=== PATIENT | female | born 1950 | race Caucasian/White ===

== ENCOUNTER 2016-10-06 10:50 | Emergency (ER) | payer OTHER ==
[~2016-10-06] VITALS: Ht 162.6 cm; Wt 59.1 kg
[2016-10-06 10:56] VITALS: BP 138/78; PULSE 58; RESP 18; O2SAT 100
[2016-10-06 11:33] LABS: BASOPHILS % (AUTO) 0.2 % (0-3); EOSINOPHILS % (AUTO) 2.6 % (0-5); MONOCYTES % (AUTO) 9.7 % (4-12); Mean Corpuscular Hemoglobin 26.9 pg (27.0-35.0); Mean Corpuscular Volume 83.8 fL (81-100); NEUTROPHILS % (AUTO) 52.2 % (40-74); Platelet Count 321 bil/L (150-400)
[2016-10-06 11:54] LABS: TROPONIN T 0.01 ug/L (0.0-0.011)
[2016-10-06 12:05] LABS: Magnesium 2.1 mg/dL (1.6-2.6)
--- NOTE | 2016-10-06 12:28 | ED.REPORT ---
HPI-Extremity Prob Upper Peds Date of Service Oct 06, 2016 ED Provider: Stephaine Chun History of Present Illness: heart has been acting "wonky" for a few weeks. has had episodes for the past 25 years. 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 no primary care. no cardiology exrcises 45 minutes daily. feels the heart is beating fast and then "under acheiving" lasting a minute. has not done this in a few days Nursing Notes Stated Complaint: HEART PALPITATIONS Chief Complaint: Dysrhythmia/Cardiac Nursing Notes Reviewed: Yes Allergies: Coded Allergies: oxycodone (Verified Allergy, Severe, 10/06/16) General Time Seen by MD: 12:17 Chief Complaint Other (palpations) Hx Obtained from: Patient Past Medical History Past Medical History Denies: Asthma, Diabetes mellitus Past Surgical History denies Smoking History Never Smoker Occupation Occupation: lives with 10/06/2016 Ambulatory Status Ambulatory Status: Independent Review of Systems Basic Review of Systems Eyes: Vision NL, No discharge ENT: Hearing NL, No pain, No nasal congestion, No pharyngeal pain Respiratory: No shortness of breath, No cough, No wheeze Cardiovascular: No chest pain, No dyspnea on exertion, No orthopnea, No parox noct dyspnea, No palpitations GI: No abdominal pain, No anorexia, No nausea, No vomiting : No dysuria, No frequency Hematologic: No bleeding, No bruising Endocrine: No cold intolerance, No heat intolerance, No weight gain, No weight loss Allergy / Immune: No allergy Psychiatric: Normal thought content Physical Exam Initial Vital Signs Vital Signs (First) Date Time Temp Pulse Resp B/P Pulse Ox O2 Delivery O2 Flow Rate FiO2 10/06/16 10:56 36.2 58 18 138/78 100 Room Air Initial VS: Reviewed, Vital signs normal General/Constitutional: Well-developed, Well-nourished, No irritability Head / Eyes: Atraumatic, Normocephalic, PERRL ENT: Mucous membranes moist, Conjunctiva normal, No scleral icterus Neck: Supple, Non-tender, Full range of motion Respiratory: Breath sounds normal, Clear to auscultation, No respiratory distress Cardiovascular: Regular rate & rhythm, Heart sounds normal, Intact distal pulses Abdomen / GI: Soft, Non-tender, No guarding, No rebound, No distention Back: No CVA tenderness Lymphatic: No lymphadenopathy Lower Extremities: Vascular intact, Neuro intact, No swelling, No tenderness Skin: Warm, Dry, No cyanosis Neurologic: Alert, Oriented, Nonfocal Psychiatric: Mood/affect normal, Behavior normal, Normal thought content General / Constitutional: Awake, Alert, No apparent distress, Well appearing, Well developed Respiratory / Chest: Atraumatic, Breath sounds NL, Breath sounds = bilat, No respiratory distress, No grunting Cardiovascular: Heart rate NL, Regular rhythm, Heart sounds NL, No gallop Upper Extremity / MS: Atraumatic, Normal inspection, Full range of motion, No swelling Interpretation & Diagnostics Lab Results Interpretation Result Diagram: 10/06/16 1119 10/06/16 1119 Test 10/06/16 11:19 White Blood Count 6.1th/mm3 (3.8-10.1) Red Blood Count 4.64mil/mm3 (3.90-5.20) Hemoglobin 12.5g/dL (12.0-15.6) Hematocrit 38.9% (35.0-46.0) Mean Corpuscular Volume 83.8fL (81-100) Mean Corpuscular Hemoglobin 26.9pg (27.0-35.0) Mean Corpuscular Hemoglobin Concent 32.1% (32.0-37.0) Red Cell Distribution Width 13.7% (12.3-15.4) Platelet Count 321bil/L (150-400) Neutrophils (%) (Auto) 52.2% (40-74) Lymphocytes (%) (Auto) 35.0% (14-46) Monocytes (%) (Auto) 9.7% (4-12) Eosinophils (%) (Auto) 2.6% (0-5) Basophils (%) (Auto) 0.2% (0-3) Sodium Level 142mEq/L (134-144) Potassium Level 3.9mEq/L (3.5-5.2) Chloride Level 105mEq/L (97-108) Carbon Dioxide Level 25mmol/L (18-29) Blood Urea Nitrogen 21mg/dL (8-27) Creatinine 0.53mg/dL (0.57-1.00) Estimat Glomerular Filtration Rate 166mL/min (>59) Glucose Level 94mg/dL (60-99) Calcium Level 9.1mg/dL (8.5-10.1) Magnesium Level 2.1mg/dL (1.6-2.6) Total Bilirubin 0.3mg/dL (0.0-1.2) Aspartate Amino Transf (AST/SGOT) 24U/L (0-50) Alanine Aminotransferase (ALT/SGPT) 13U/L (0-32) Alkaline Phosphatase 85U/L (25-165) Troponin T 0.010ug/L (0.0-0.011) Total Protein 6.7g/dL (6.4-8.4) Albumin 3.9g/dL (3.4-5.0) Thyroid Stimulating Hormone (TSH) 3.100uIU/mL (0.450-4.500) Hold Tomas Top Tube Received (Received) X-Ray Interpretation Xray Interpretation: ECHNIQUE: 2 views of the chest were acquired. COMPARISON: None. FINDINGS: Surgical changes and devices: None. Lungs and pleura: No pleural effusions or pneumothorax. Mild hyperexpansion, possibly related to early COPD. Mediastinum: Mediastinal contours are normal. Heart size is normal. Bones and chest wall: No suspicious bony abnormalities. Soft tissues appear unremarkable. IMPRESSION: No acute pulmonary process. Discharge & Departure Primary Impression: Intermittent palpitations Disposition: Home Patient Instructions: Palpitations (ED) Additional Instructions: At this time, you have a normal heart rate. Your EKG, a copy is provided, is normal. Your labs including troponin are normal. We are still waiting on the TSH and the chest x-ray has not had the final report yet. If any of these are abnormal, we will contact you. You need to see cardiology. 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 Leonidas Sequeira. Please call the office to schedule a follow up appointment. You will need to call your insurance to see is a referral is required from them first. Continue with your exercise program. Referrals: Leonidas Sequeira MD EDSupervising Provider for APC: Josr Gross MD copies to: Leonidas Sequeira MD, Sue ARNP Oct 06, 2016 12:28
--- NOTE | 2016-10-06 13:33 | DRSVH ---
PROCEDURE: X-RAY CHEST, TWO VIEWS ([id number]) INDICATIONS: chest pain, palpatations TECHNIQUE: 2 views of the chest were acquired. COMPARISON: None. FINDINGS: Surgical changes and devices: None. Lungs and pleura: No pleural effusions or pneumothorax. Mild hyperexpansion, possibly related to ear ly COPD. Mediastinum: Mediastinal contours are normal. Heart size is normal. Bones and chest wall: No suspicious bony abnormalities. Soft tissues appear unremarkable. IMPRESSION: No acute pulmonary process. Dictated by: Eden Warner M.D. on 10/06/2016 at 13:32 Approved by: Eden Warner M.D. on 10/06/2016 at 13:32
== END 2016-10-06 13:03 | disposition home or self-care (01) ==
LOC: SED 10:50
DX: R00.2 Palpitations (principal); Z88.5 Allergy status to narcotic agent
CPT/HCPCS: 36415; 71020; 80053; 83735; 84443; 84484; 85025; 93005; 99284; G0463